=== PATIENT | female | born 1935 | race Caucasian/White ===

== ENCOUNTER → 2017-01-16 | Outpatient (CLI) | payer BC ==
[~2017-01-16] MED LIST: ACET-1256 PO; AMLO-114 PO; ASPEC325 PO; CALC-354 PO; CARV25TA2 PO; CHOL1000 PO; CLB200 PO; COEN1CAP37 PO; GLUC-172 PO; HYDR-5688 PO; METF1000 PO; OMEG10002 PO; SIMV10TA2 PO; VALS320T2 PO; VITAMIN B12 PO
[2017-01-16 13:54] LABS: BUN/CREATININE RATIO 20.7 (10-20); CREATININE 1.1 mg/dl (0.60-1.20)
== END | disposition home or self-care (01) ==
LOC: C.LABMFLN 08:47
PROVIDERS: ATTEND Psychiatry & Neurology Neurology
DX: R55 Syncope and collapse (principal)

== ENCOUNTER → 2017-02-07 | Outpatient (CLI) | payer BC | END | disposition home or self-care (01) | LOC: C.LABMFLN 14:47 | PROVIDERS: ATTEND Family Medicine | DX: M19.90 Unspecified osteoarthritis, unspecified site (principal) ==

== ENCOUNTER → 2017-04-13 | Outpatient (CLI) | payer BC ==
[2017-04-13 13:27] LABS: ESTIMATED AVERAGE GLUCOSE 131 mg/dl; HA1C FLAG Normal (Normal)
[2017-04-13 14:29] LABS: BLOOD UREA NITROGEN 19 mg/dl (7-18); GLUCOSE 95 mg/dl (70-99)
[2017-04-13 14:30] LABS: ALT/SGPT 24 U/L (12-78); AST/SGOT 18 U/L (15-37); BUN/CREATININE RATIO 15.5 (10-20); CARBON DIOXIDE 28 mmol/L (21-32); CHLORIDE 105 mmol/L (98-107); CHOLESTEROL 129 mg/dl (0-200); SODIUM 143 mmol/L (136-145); TRIGLYCERIDES 149 mg/dl (0-150); VERY LOW DENSITY LIPOPROT CALC 30 mg/dl
[2017-04-13 14:32] LABS: ALKALINE PHOSPHATASE 52 U/L (45-117); CHOLESTEROL/HDL RATIO 2.8; HDL CHOLESTEROL 46 mg/dl; LDL CHOLESTEROL CALCULATED 53 mg/dl
[2017-04-13 14:33] LABS: CALCIUM 9.6 mg/dl (8.5-10.1)
--- NOTE | 2017-04-17 11:33 | CODING QUERY MEDICAL NECESSITY ---
CQSUPPORTING DIAGNOSIS NEEDED A supporting diagnosis is required for the test/procedure performed on this patient in order for us to be reimbursed by the patient's insurance. Please provide a supporting diagnosis for the following test/procedure listed below next to the test name along with your signature. *If there is no additional diagnosis for this patient that would support the following test/procedure please document that below next to the test/procedure. Test(s)/Procedure(s) that require a supporting diagnosis: DOS 04/13/17 VITAMIN D VITAMIN B12 Provider Signature: Date: Thank you [facility] Once completed, please kindly fax back to [phone] For questions please call [phone]
== END | disposition home or self-care (01) ==
LOC: C.LABMFLN 08:49
PROVIDERS: ATTEND Family Medicine
DX: E11.9 Type 2 diabetes mellitus without complications (principal); E78.00 Pure hypercholesterolemia, unspecified; I10 Essential (primary) hypertension; E55.9 Vitamin D deficiency, unspecified; E53.8 Deficiency of other specified B group vitamins

== ENCOUNTER → 2017-04-19 | Outpatient (CLI) | payer BC ==
--- NOTE | 2017-04-19 11:26 | DIAGNOSTIC IMAGING REPORT ---
CHEST 2 VIEWS ROUTINE CLINICAL HISTORY: R06.2 [id number] COMPARISON STUDY: 02/13/2014 FINDINGS: The heart remains enlarged. There is persistent aortic tortuosity. There is no failure. There is no focal pulmonary consolidation. There is minor chronic blunting of the right lateral costophrenic angle. Degenerative changes are present within the dorsal spine.[ IMPRESSION: Persistent cardiomegaly. No acute findings. Electronically signed by: Mynor Babcock M.D. 04/19/2017 11:25 AM Dictated Date/Time: 04/19/2017 11:24 AM
== END | disposition home or self-care (01) ==
LOC: C.RAD 10:50
PROVIDERS: ATTEND Family Medicine
DX: R06.2 Wheezing (principal); I51.7 Cardiomegaly

== ENCOUNTER → 2017-05-02 | Outpatient (CLI) | payer BC | END | disposition home or self-care (01) | LOC: C.LABMFLN 12:41 | PROVIDERS: ATTEND Family Medicine | DX: M10.9 Gout, unspecified (principal) ==

== ENCOUNTER → 2017-05-16 | Outpatient (CLI) | payer BC ==
--- NOTE | 2017-05-16 13:00 | DIAGNOSTIC IMAGING REPORT ---
RIBS BILATERAL MIN 3 VIEWS CLINICAL HISTORY: M54.9 Chronic back paint to lower ribs bilaterally pain COMPARISON STUDY: 04/19/2017 FINDINGS: Negative study of the ribs bilaterally. Cortical margins are intact. Moderate degenerative change thoracic spine IMPRESSION: No acute process Electronically signed by: aMgnus Segovia M.D. 05/16/2017 12:59 PM Dictated Date/Time: 05/16/2017 12:57 PM
--- NOTE | 2017-05-16 13:04 | DIAGNOSTIC IMAGING REPORT ---
THORACIC SPINE 3 VIEWS ROUTINE HISTORY:81 [id number] Chronic back pain. COMPARISON: Chest radiograph 04/19/2017. TECHNIQUE: Frontal and lateral views of the thoracic spine. FINDINGS: 12 rib bearing thoracic type vertebral segments are present. There is mild convex left curvature of the lower thoracic spine. Multilevel intervertebral disc space narrowing and endplate spurring is present. No compression deformity is identified. Cardiac silhouette is again enlarged. The imaged lung hooper appear to be grossly clear. There is atherosclerosis of the aorta. IMPRESSION: 1. No acute fracture or dislocation. 2. Mild convex left curvature of the lower thoracic spine. 3. Multilevel advanced intervertebral disc space narrowing and endplate spurring. The above report was generated using voice recognition software. It may contain grammatical, syntax or spelling errors. Electronically signed by: Sandip Dowell M.D. 05/16/2017 1:02 PM Dictated Date/Time: 05/16/2017 1:01 PM
--- NOTE | 2017-05-19 08:56 | Pulmonary Function Report ---
Pulmonary Function Report May 16, 2017 Pulmonary Function Report: Clinical data: The patient is an 81-year-old female with a height of 62 inches and a weight [address] Mendoza for evaluation of cough and wheezing. Spirometry pre and post bronchodilator, lung volumes, and diffusion capacity were performed. Findings: Pre bronchodilator spirometry demonstrates mild restrictive changes. FVC was 73 percent of predicted. FEV1 was 76 percent of predicted. FEF 25- 75 was 81 percent of predicted. FEV1/FVC was 93 percent of predicted. There was an 8 percent improvement in FVC after inhaled bronchodilator and a 2 percent improvement in FEV1 after inhaled bronchodilator. Lung volumes show a significant reduction in expiratory reserve volume consistent with the patient' s weight. DLCO was moderately reduced at 51 percent of predicted. Impression: Mild restrictive disease with slight improvement after inhaled bronchodilator. Moderate reduction in DLCO. Copies To 1: Ayan Mendoza M.D.
== END | disposition home or self-care (01) ==
LOC: C.RC 12:11
PROVIDERS: ATTEND Family Medicine
DX: R05 Cough (principal); R06.2 Wheezing; M54.9 Dorsalgia, unspecified

== ENCOUNTER → 2017-07-07 | Outpatient (CLI) | payer BC | END | disposition home or self-care (01) | LOC: C.LABMFLN 09:46 | PROVIDERS: ATTEND Family Medicine | DX: M10.9 Gout, unspecified (principal) ==

== ENCOUNTER → 2017-09-19 | Outpatient (CLI) | payer BC ==
[2017-09-19 13:14] LABS: ALT/SGPT 19 U/L (12-78); BLOOD UREA NITROGEN 17 mg/dl (7-18); BUN/CREATININE RATIO 15.2 (10-20); CALCIUM 10.4 mg/dl (8.5-10.1); CARBON DIOXIDE 30 mmol/L (21-32); CHLORIDE 102 mmol/L (98-107); CHOLESTEROL 144 mg/dl (0-200); GLUCOSE 110 mg/dl (70-99); POTASSIUM 3.8 mmol/L (3.5-5.1); SODIUM 141 mmol/L (136-145)
[2017-09-19 13:17] LABS: ALB/GLOB RATIO 1.1 (0.9-2); ALKALINE PHOSPHATASE 75 U/L (45-117); AST/SGOT 16 U/L (15-37); HDL CHOLESTEROL 48 mg/dl; LDL CHOLESTEROL CALCULATED 58 mg/dl; TRIGLYCERIDES 188 mg/dl (0-150); VERY LOW DENSITY LIPOPROT CALC 38 mg/dl
[2017-09-19 13:34] LABS: ESTIMATED AVERAGE GLUCOSE 128 mg/dl; HA1C FLAG Normal (Normal)
== END | disposition home or self-care (01) ==
LOC: C.LABMFLN 08:50
PROVIDERS: ATTEND Family Medicine
DX: E11.9 Type 2 diabetes mellitus without complications (principal); E78.00 Pure hypercholesterolemia, unspecified; I25.10 Atherosclerotic heart disease of native coronary artery without angina pectoris

== ENCOUNTER → 2018-01-15 | Outpatient (CLI) | payer BC ==
[2018-01-15 12:20] LABS: BASO % 1.1 %; BASO ABS # 0.09 K/uL (0-0.2); EOS % 3.8 %; HEMATOCRIT 39.4 % (37-47); HEMOGLOBIN 12.9 g/dL (12.0-16.0); IG# 0.02 K/uL (0.00-0.02); LYMPH % 23.1 %; LYMPH ABS # 1.82 K/uL (1.2-3.4); MEAN CORPUSCULAR HEMOGLOBIN 29.8 pg (25-34); MEAN CORPUSCULAR HGB CONC 32.7 g/dl (32-36); MEAN PLATELET VOLUME 10.6 fL (7.4-10.4); MONO % 10.4 %; MONO ABS # 0.82 K/uL (0.11-0.59); NEUT % 61.3 %; NEUT ABS # 4.84 K/uL (1.4-6.5); PLATELET COUNT 289 K/uL (130-400); RED CELL DISTRIBUTION WIDTH CV 14.1 % (11.5-14.5); RED CELL DISTRIBUTION WIDTH SD 46.4 fL (36.4-46.3); WHITE BLOOD COUNT 7.89 K/uL (4.8-10.8)
[2018-01-15 13:05] LABS: HEMOGLOBIN A1C 6.1 % (4.5-5.6)
[2018-01-15 13:45] LABS: CREATININE RANDOM URINE 81.9 mg/dl
[2018-01-15 16:18] LABS: ALBUMIN 3.8 gm/dl (3.4-5.0); ALT/SGPT 18 U/L (12-78); BLOOD UREA NITROGEN 24 mg/dl (7-18); CALCIUM 9.9 mg/dl (8.5-10.1); CARBON DIOXIDE 29 mmol/L (21-32); CHOLESTEROL 123 mg/dl (0-200); CREATININE 1.12 mg/dl (0.60-1.20); GLUCOSE 85 mg/dl (70-99); POTASSIUM 3.8 mmol/L (3.5-5.1); SODIUM 139 mmol/L (136-145); URIC ACID 5.2 mg/dl (2.6-7.2)
[2018-01-15 16:21] LABS: ALKALINE PHOSPHATASE 65 U/L (45-117); AST/SGOT 14 U/L (15-37); LDL CHOLESTEROL CALCULATED 47 mg/dl; TOTAL PROTEIN 7.2 gm/dl (6.4-8.2)
== END | disposition home or self-care (01) ==
LOC: C.LABMFLN 08:22
PROVIDERS: ATTEND Family Medicine
DX: E11.9 Type 2 diabetes mellitus without complications (principal); E78.00 Pure hypercholesterolemia, unspecified; I25.10 Atherosclerotic heart disease of native coronary artery without angina pectoris; E53.8 Deficiency of other specified B group vitamins; M10.9 Gout, unspecified